=== PATIENT | female | born 2000 | race Two or more races ===

== ENCOUNTER 2024-09-30 00:30 | Emergency (ER) | payer MEDICAID ==
[~2024-09-30] VITALS: Ht 167.6 cm; Wt 88.2 kg
[2024-09-30] MEDS ORDERED: AUG875T PO (04:06)
--- NOTE | 2024-09-30 04:06 | ED.PDOC ---
Eye-HPI Chief Complaint: Sore Throat Time Seen by MD: 00:48 Reviewed Notes: Nurses Notes, Medications, Allergies Allergies: Coded Allergies: NO KNOWN ALLERGIES (Unverified , 09/30/24) Information Source: Patient Mode of Arrival: Ambulatory X-Ray, Labs, Meds, VS Vital Signs Date Time Temp Pulse Resp B/P (MAP) Pulse Ox O2 Delivery O2 Flow Rate FiO2 09/30/24 00:55 98.0 82 18 132/79 (96) 98 Departure 1 Departure Time of Disposition: 04:05 Impression: Primary Impression: Acute tonsillitis, unspecified Qualified Codes: J03.90 - Acute tonsillitis, unspecified Disposition: 01 HOME / SELF CARE / HOMELESS Condition: Stable e-Prescriptions Amoxicillin & Pot Clavulanate (AUGMENTIN TABLET) 875 Mg Tb 1 TAB PO BID for 10 Days, #20 TAB Prov: CHIVO DIAZ 09/30/24 Discharged With: Self Critical Care Note Critical Care Time?: No Stability Stability form required: CHIVO Hilliard Sep 30, 2024 04:06
[2024-09-30 04:10] VITALS: BP 116/68; PULSE 86; RESP 16; TEMP 98.8; O2SAT 97
[2024-09-30] MEDS: DexAMETHasone SOD PHOS 10MG/1ML VIAL INJ IM ONE (04:18)
== END 2024-09-30 04:15 | disposition home or self-care (01) ==
LOC: ER 00:30
DX: J03.90 Acute tonsillitis, unspecified (principal)
CPT/HCPCS: 96372; 99283; J1100